=== PATIENT | male | born 1940 | race Caucasian/White ===

== ENCOUNTER → 2017-01-28 | Outpatient (REF) ==
[~2017-01-28] MED LIST: ASPIRIN 81M81 MG/TA2 PO; CLARITIN; DITROPAN 5MG TAB5 MG PO; DITROPAN5 MG PO; GLUCOPHAGE1000 MG PO; GLUCOTROL10 MG PO; HCTZ; HYTRIN10 M1 PO; LASIX 20MG TABL20 MG PO; METFORMIN; MOBIC 7.5MG7.5 MG PO; NORCO PO; NORVASC 10MG10 MG PO; PRAMIPEXOLE; SIMVISTATIN; TOPROL XL 50MG50 MG PO; ZOCOR 40MG40 MG PO; terazosin
== END ==
LOC: ZLAB.WCH 18:00
DX: Z01.89 Encounter for other specified special examinations (principal)

== ENCOUNTER → 2017-02-19 | Outpatient (REF) ==
[2017-02-19 09:43] LABS: THYROID STIMULATING HORMONE 1.36 uIU/mL (0.465-4.680)
== END ==
LOC: ZCOL.LAB 08:42
PROVIDERS: Family Medicine
DX: Z01.89 Encounter for other specified special examinations (principal)

== ENCOUNTER → 2017-06-22 | Outpatient (REF) | LOC: ZLAB.WCH 16:00 | DX: Z01.89 Encounter for other specified special examinations (principal) ==

== ENCOUNTER → 2017-09-20 | Outpatient (REF) | LOC: ZLAB.WCH 18:04 | DX: Z01.89 Encounter for other specified special examinations (principal) ==

== ENCOUNTER 2018-11-10 09:06 | Inpatient (IN) | payer MEDICARE, OTHER ==
[~2018-11-10] VITALS: Ht 172.7 cm; Wt 125.0 kg
[2018-11-22 08:51] VITALS: BP 158/62; PULSE 66; TEMP 98.9
[2018-11-22] MEDS ORDERED: NEURONTIN300 MG/CAP PO (09:04)
[2018-11-22] MEDS ORDERED: LIPITOR20 MG PO (09:05)
[2018-11-22] MEDS ORDERED: PROAIR HFA0.09 MG/AC IH (09:09)
[2018-11-22] MEDS ORDERED: ZYRTEC 10MG10 MG PO (09:09)
[2018-11-22] MEDS ORDERED: 00186-0370-20 IH (09:10)
[2018-11-22 09:17] LABS: BASO # 0.1 (0.0-0.2); BASO % 0.5 % (0.0-2.0); EOS # 0.3 (0.0-0.7); EOS % 2.5 % (0-4.0); GRAN # 7.2 (1.4-6.5); GRAN % 70.8 % (42.2-75.2); LYMPH # 1.9 (1.2-3.4); LYMPH % 18.3 % (20.0-51.0); MEAN CELL VOLUME 95 fl (80.0-100.0); MEAN CORPUSCULAR HEMOGLOBIN 29 pg (27.0-31.0); MEAN CORPUSCULAR HGB CONC 31 g/dl (33.0-37.0); MEAN PLATELET VOLUME 9.8 fl (7.4-10.4); MONO # 0.8 (0.1-0.6); MONO % 7.6 % (1.7-9.3); PLATELET COUNT 179 K/mm3 (130-400); RED BLOOD COUNT 4.09 M/mm3 (4.20-5.60)
[2018-11-22 09:28] LABS: ALBUMIN 3.7 gm/dL (3.5-5.0); BILIRUBIN,TOTAL 0.4 mg/dL (0.0-1.0); CREATININE, serum 1.62 (0.66-1.25); MAGNESIUM 1.7 mg/dL (1.6-2.3); POTASSIUM 4.7 mmol/L (3.4-5.0); TOTAL PROTEIN 7.1 gm/dL (6.4-8.2)
[2018-11-22 09:30] LABS: INR 1.1 (0.8-3.0); PROTHROMBIN TIME 12.5 SECONDS (9.7-12.8)
--- NOTE | 2018-11-22 09:50 | NUR ---
22G INSERTED TO LEFT WRIST
[2018-11-22 11:10] VITALS: BP 126/52; PULSE 50; TEMP 98.3
[2018-11-22 11:51] VITALS: BP 126/52; PULSE 50
--- NOTE | 2018-11-22 14:57 | NUR ---
PT RESTING IN CHAIR
--- NOTE | 2018-11-22 15:14 | NUR ---
PT'S HR AT 37-[address] MURCIA NOTIFIED. PROVIDER OK WITH SETTING LOW LIMIT AT 35 ESPECIALLY IF PATIENT IS SLEEPING.
[2018-11-22 15:38] VITALS: BP 126/57; PULSE 44; TEMP 97.6
--- NOTE | 2018-11-22 15:54 | NUR ---
ASSISTED PT WITH SELF CATHETERIZATION D/T NEUROGENIC BLADDER. 16F CATH INSERTED. 600ML URINE RETURNED.
[2018-11-22 19:24] VITALS: BP 157/65; PULSE 50; TEMP 97.3
--- NOTE | 2018-11-22 20:15 | NUR ---
Patient is alert and oriented up in the chair. Appetite is good. Vital signs stable. No complaints of pain or nausea.
[2018-11-22 23:06] VITALS: BP 161/59; PULSE 49; TEMP 97.8
[2018-11-23 03:49] VITALS: BP 142/58; PULSE 50
--- NOTE | 2018-11-23 05:22 | NUR ---
Patient has been resting comfortably this shift. Patient has had no complaints of pain this shift. Patient was assisted to straight cath before bed per his usual routine. Vitals are within the parameters set for this patient.
--- NOTE | 2018-11-23 07:00 | NUR ---
Agree with assessment and notes this shift
[2018-11-23 07:13] VITALS: BP 132/63; PULSE 43; TEMP 98.5
[2018-11-23 07:42] LABS: BASO % 0.5 % (0.0-2.0); EOS # 0.3 (0.0-0.7); EOS % 3.2 % (0-4.0); GRAN # 5.4 (1.4-6.5); HEMATOCRIT 37.9 % (42.0-52.0); HEMOGLOBIN 11.7 g/dl (13.5-18.0); LYMPH # 1.8 (1.2-3.4); LYMPH % 22.3 % (20.0-51.0); MEAN CELL VOLUME 95 fl (80.0-100.0); MEAN CORPUSCULAR HEMOGLOBIN 29 pg (27.0-31.0); MEAN CORPUSCULAR HGB CONC 31 g/dl (33.0-37.0); MEAN PLATELET VOLUME 10.2 fl (7.4-10.4); MONO # 0.6 (0.1-0.6); MONO % 7.8 % (1.7-9.3); PLATELET COUNT 183 K/mm3 (130-400); RED BLOOD COUNT 3.99 M/mm3 (4.20-5.60); REDCELL DISTRIBUTION WIDTH-CV 13.9 % (11.5-14.5)
[2018-11-23 07:54] LABS: CALCIUM 8.9 mg/dL (8.4-10.2); CREATININE, serum 1.45 (0.66-1.25); MAGNESIUM 1.9 mg/dL (1.6-2.3); POTASSIUM 4.8 mmol/L (3.4-5.0)
--- NOTE | 2018-11-23 10:01 | NUR ---
Initial visit; Patient thanked Chief Controller for looking in on him and offering spiritual care. Patient requests that Chief Controller keep him in her prayers.
[2018-11-23 11:49] VITALS: BP 159/70; PULSE 45; TEMP 98
--- NOTE | 2018-11-23 15:34 | NUR ---
SW met with the patient to discuss discharge plan. The patient lives in [place] with his , Delia (ph#[phone]). He reports independence with ADLs and has a cane, walker, handcrutches, electric scooter, and a CPAP and continuous oxygen from [facility]. The patient's PCP is Dr. Ramon Ch and he receives his medications from [facility]. He reports no difficulties obtaining his meds. The patient does not have advanced directives in EMR, but he states that he does have them completed and at home. He states that his is his DPOA-HC. The patient plans to return back home with his upon discharge. No additional needs at this time.
[2018-11-23 16:05] VITALS: BP 123/53; PULSE 41; TEMP 97.4
--- NOTE | 2018-11-23 19:00 | NUR ---
PT HAD UNEVENTFUL DAY. PLEASENT AND COOPERATIVE WITH CARES. THIS NURSE STRAIGHT CATHED PT NEEDED. LOOP RECORDER PLACED THIS AM WITHOUT ISSUE. NO CONSERNS OR ISSUES VOICED THIS SHIFT.
[2018-11-23 19:06] VITALS: BP 139/52; PULSE 41; TEMP 97.6
--- NOTE | 2018-11-23 20:10 | NUR ---
Patient assessed at this time. Alert and oriented x 4, and able to make needs known. Denies having pain and discomfort at this time. Peripheral IV to left wrist flushed. Site is without redness, warmth, swelling, and pain. On oxygen at 3 L/min via [place]. Denies having SOB and dyspnea. LS CTA in upper lobes, diminished in lower lobes. Telemetry in place-sinus abel around 40s. Dressing to left chest is CDI. Site is without redness, warmth, swelling, and pain. Capillary refill less than 3 seconds. Non-tenting skin turgor. BSAx4. Abdomen soft and non-tender. 2+ edema BLE. Voices no questions, needs, or concerns at this time. Resting in recliner watching TV at this time. Call light is within reach.
--- NOTE | 2018-11-24 00:30 | NUR ---
Assisted patient with self cath at this time. 600 mls of urine output. Assisted with putting on CPAP. Voices no other questions, needs, or concerns at this time. Resting in bed with call light within reach.
[2018-11-24 00:52] VITALS: BP 137/75; PULSE 36; TEMP 97.8
[2018-11-24 03:25] VITALS: BP 146/65; PULSE 44; TEMP 97.4
--- NOTE | 2018-11-24 05:30 | NUR ---
Patient denied having pain and discomfort this shift. HR was around 35 while sleeping. EKG this morning with the following results: HR 40, QTC 418-sinus bradycardia with occasional ventricular premature complexes. Called to Dr. Dacosta. New order to change Sotalol from 80 mg po BID to 60 mg po BID. Order updated in APR. Patient resting in bed with call light within reach.
[2018-11-24 06:13] LABS: BASO % 0.5 % (0.0-2.0); EOS # 0.3 (0.0-0.7); EOS % 4.4 % (0-4.0); GRAN # 3.7 (1.4-6.5); GRAN % 59.7 % (42.2-75.2); HEMATOCRIT 39.1 % (42.0-52.0); LYMPH # 1.6 (1.2-3.4); LYMPH % 26.4 % (20.0-51.0); MEAN CELL VOLUME 95 fl (80.0-100.0); MEAN CORPUSCULAR HEMOGLOBIN 29 pg (27.0-31.0); MEAN CORPUSCULAR HGB CONC 31 g/dl (33.0-37.0); MEAN PLATELET VOLUME 9.9 fl (7.4-10.4); MONO # 0.5 (0.1-0.6); MONO % 8.7 % (1.7-9.3); PLATELET COUNT 181 K/mm3 (130-400); RED BLOOD COUNT 4.11 M/mm3 (4.20-5.60); REDCELL DISTRIBUTION WIDTH-CV 13.9 % (11.5-14.5)
[2018-11-24 06:25] LABS: POTASSIUM 4.7 mmol/L (3.4-5.0)
[2018-11-24 06:28] LABS: CALCIUM 8.9 mg/dL (8.4-10.2); CREATININE, serum 1.53 (0.66-1.25); MAGNESIUM 1.9 mg/dL (1.6-2.3)
[2018-11-24 08:20] VITALS: BP 127/56; PULSE 45; PULSE 52; TEMP 97.2
[2018-11-24 11:05] VITALS: BP 118/53; PULSE 43; TEMP 98.1
[2018-11-24] MEDS ORDERED: CEPHALEXIN500 M1 PO (12:50)
[2018-11-24] MEDS ORDERED: BETAPACE 80MG80 MG PO (12:51)
--- NOTE | 2018-11-24 14:15 | NUR ---
PT HAD UNEVENTFUL DAY. IV AND TELE REMOVED WITHOUT ISSUE. NO QUESTIONS OR CONSERNS VOICED. THIS NURSE CALLING PROVIDER TO ENSURE CORRECT DOSE OF SOTOLOL WAS PERSCRIBED DUE TO DOSAGE CHANGE OVERNIGHT. THIS NURSE ESCORTED PT OUT OF FACILITY.
== END 2018-11-24 14:15 | disposition home or self-care (01) | DRG 262 ==
LOC: MEDICAL 11-22 07:49
PROVIDERS: ADMIT Internal Medicine Cardiovascular Disease
PROC: 0JH632Z Insertion of Monitoring Device into Chest Subcutaneous Tissue and Fascia, Percutaneous Approach (ICD-10-PCS; principal; 2018-11-23)
DX: I47.1 Supraventricular tachycardia (principal); I48.0 Paroxysmal atrial fibrillation; I10 Essential (primary) hypertension; J44.9 Chronic obstructive pulmonary disease, unspecified; G47.33 Obstructive sleep apnea (adult) (pediatric); I35.0 Nonrheumatic aortic (valve) stenosis; I27.20 Pulmonary hypertension, unspecified; E78.2 Mixed hyperlipidemia; Z23 Encounter for immunization; Z85.828 Personal history of other malignant neoplasm of skin; Z98.1 Arthrodesis status; Z95.5 Presence of coronary angioplasty implant and graft
CPT/HCPCS: C1764

== ENCOUNTER → 2020-09-17 | Outpatient (REF) ==
[~2020-09-17] MED LIST changes: +00186-0370-20 IH; +BETAPACE 80MG80 MG PO; +CEPHALEXIN500 M1 PO; +LIPITOR20 MG PO; +NEURONTIN300 MG/CAP PO; +PROAIR HFA0.09 MG/AC IH; +ZYRTEC 10MG10 MG PO
== END ==
LOC: ZLAB.WCH 09:14
DX: Z01.89 Encounter for other specified special examinations (principal)